=== PATIENT | male | born 1995 | race Caucasian/White ===

== ENCOUNTER 2019-02-27 01:13 | Emergency (ER) | payer OTHER ==
[~2019-02-27] VITALS: Ht 180.3 cm; Wt 63.5 kg
[~2019-02-27 01:13] MED LIST: AMOXICILLIN500 MG PO; CONCERTA27 MG; FLONASE 0.05% 121 EA NAS; MOTRIN800 MG PO; SEROQUEL XR50 MG
[2019-02-27] MEDS ORDERED: AUGMENTIN 875-875 MG PO (02:01)
== END 2019-02-27 02:15 | disposition home or self-care (01) ==
LOC: ED 01:13
DX: L03.031 Cellulitis of right toe (principal); J32.9 Chronic sinusitis, unspecified

== ENCOUNTER 2020-09-24 12:13 | Emergency (ER) | payer OTHER ==
[~2020-09-24 12:13] MED LIST changes: +AUGMENTIN 875-875 MG PO
[2020-09-24] MEDS ORDERED: TESSALON PERLE100 M1 PO (14:50)
[2020-09-24] MEDS ORDERED: PROVENTIL HFA6.7 GM INH (14:50)
== END 2020-09-24 15:07 | disposition home or self-care (01) ==
LOC: ED 12:13
DX: J20.8 Acute bronchitis due to other specified organisms (principal); Z79.2 Long term (current) use of antibiotics